=== PATIENT | male | born 1960 | race Caucasian/White ===

== ENCOUNTER 2016-11-10 12:30 | Emergency (ER) | payer SELFPAY ==
[2016-11-10 12:43] VITALS: BP 147/72
--- NOTE | 2016-11-10 12:56 | UC ---
Abdominal Pain Male HPI - HPI Summary HPI Summary: complaint of abdominal pain that started 4 days ago constant vomiting everytime he drinks or tries to eat pain in RLQ/LLQ pain intermittent throbbing pain unable to sleep d/t pain denies diarrhea, no BM for the last 5-6 days ago, no blood in stool at that time denies dysuria and fever hasn' t taken any medication for pain - History of Current Complaint Chief Complaint: UCGI Stated Complaint: VOMITING, HEADACHE Time Seen by Provider: 11/10/16 12:47 Hx Obtained From: Patient - Allergies/Home Medications Allergies/Adverse Reactions: Allergies Allergy/AdvReac Type Severity Reaction Status Date / Time No Known Allergies Allergy Verified 11/10/16 12:38 Home Medications: Home Medications Ibuprofen TAB* [Advil TAB*] 800 mg PO Q8H PRN 11/10/16 [History Confirmed ] PMH/Surg Hx/FS Hx/Imm Hx Previously Healthy: No - Surgical History Surgical History: None - Family History Known Family History: Positive: Diabetes Negative: Cardiac Disease, Hypertension - Social History Occupation: Employed Part-time Lives: With Family Alcohol Use: None Substance Use Type: None Smoking Status (MU): Heavy Every Day Tobacco Smoker Amount Used/How Often: 1/2 PPD Length of Time of Smoking/Using Tobacco: Since Age 15 Have You Smoked in the Last Year: Yes Household Exposure Type: Cigarettes Cessation Counseling: Patient Advised to Stop Review of Systems Constitutional: Negative Skin: Negative Eyes: Negative ENT: Negative Respiratory: Negative Cardiovascular: Negative Gastrointestinal: Abdominal Pain, Vomiting Genitourinary: Negative Motor: Negative Neurovascular: Negative Musculoskeletal: Negative Neurological: Negative Psychological: Negative All Other Systems Reviewed And Are Negative: Yes Physical Exam Triage Information Reviewed: Yes Appearance: Ill-Appearing, Pain Distress Vital Signs: Initial Vital Signs Temp 99.3 F 11/10/16 12:34 Pulse 98 11/10/16 12:34 Resp 20 11/10/16 12:34 BP 147/72 11/10/16 12:34 Pulse Ox 96 11/10/16 12:34 Vital Signs Reviewed: Yes Eyes: Positive: Conjunctiva Clear ENT: Positive: Pharynx normal, TMs normal Neck: Positive: No Lymphadenopathy Respiratory: Positive: Lungs clear, Normal breath sounds, No respiratory distress, No accessory muscle use Cardiovascular: Positive: RRR, No Murmur, Pulses Normal Abdomen Description: Positive: No Organomegaly, Guarding, Other: - tenderness throughout ecwept for RLQ. Negative: CVA Tenderness (R), CVA Tenderness (L) Bowel Sounds: Positive: Present Musculoskeletal: Positive: No Edema Neurological: Positive: Alert Psychological Exam: Normal Skin Exam: Normal Abd Pain Male Course/Dx - Course Course Of Treatment: exam completed. d/t acute severe abdominal pain will transfer to higher level of care for further evlaution and treatment - Differential Dx/Clinical Impression Differential Diagnosis/HQI/PQRI: Bowel Obstruction, Constipation, Diverticulitis , Gall Bladder Disease, Pancreatitis, Prostatitis, Ureteral Stone Provider Diagnoses: abdominal pain Discharge - Discharge Plan Condition: Stable Disposition: TRANS HIGHER L OF CARE FAC Referrals: Isaak Bonilla MD [Primary Care Provider] -
== END 2016-11-10 13:00 | disposition short-term general hospital (02) ==
LOC: UCCORT 12:30
DX: R10.31 Right lower quadrant pain (principal); R10.32 Left lower quadrant pain; F17.210 Nicotine dependence, cigarettes, uncomplicated
CPT/HCPCS: 81003; 99212; G0463

== ENCOUNTER 2017-03-10 12:10 | Emergency (ER) | payer OTHER ==
[2017-03-10 12:41] VITALS: BP 133/87
--- NOTE | 2017-03-10 12:45 | UC ---
HPI Febrile Illness - HPI Summary HPI Summary: 56 YEAR OLD MALE PRESENTS WITH COMPLAINS OF SEVERE LETHARGY, FATIGUE, AND JOINT PAIN. - History of Current Complaint Chief Complaint: UCGeneralIllness Time Seen by Provider: 03/10/17 12:45 Hx Obtained From: Patient Onset/Duration: Started Days Ago Timing: Lasting Days Initial Severity: Moderate Current Severity: Moderate Pain Scale Used: 0-10 Numeric - 8 - Allergy/Home Medications Allergies/Adverse Reactions: Allergies Allergy/AdvReac Type Severity Reaction Status Date / Time No Known Allergies Allergy Verified 03/10/17 12:34 PMH/Surg Hx/FS Hx/Imm Hx Previously Healthy: Yes - Surgical History Surgical History: None - Family History Known Family History: Positive: Diabetes Negative: Cardiac Disease, Hypertension - Social History Alcohol Use: None Substance Use Type: Marijuana Substance Use Comment - Amount & Last Used: daily- last used yesterday Smoking Status (MU): Heavy Every Day Tobacco Smoker Amount Used/How Often: 1 1/2 PPD Length of Time of Smoking/Using Tobacco: Since Age 15 Have You Smoked in the Last Year: Yes Household Exposure Type: Cigarettes Review of Systems Constitutional: Fatigue Skin: Negative Eyes: Negative ENT: Negative Respiratory: Negative Cardiovascular: Negative Gastrointestinal: Negative Genitourinary: Negative Motor: Negative Neurovascular: Negative Musculoskeletal: Arthralgia, Myalgia Neurological: Negative Psychological: Negative All Other Systems Reviewed And Are Negative: Yes Physical Exam Triage Information Reviewed: Yes Vital Signs: Initial Vital Signs Temp 36.9 C 03/10/17 12:34 Pulse 71 03/10/17 12:34 Resp 14 03/10/17 12:34 BP 133/87 03/10/17 12:34 Pulse Ox 97 03/10/17 12:34 Vital Signs Reviewed: Yes Eye Exam: Normal ENT Exam: Normal Dental Exam: Normal Neck exam: Normal Neck: Positive: 1 Respiratory Exam: Normal Cardiovascular Exam: Normal Abdominal Exam: Normal Musculoskeletal Exam: Normal Neurological Exam: Normal Psychological Exam: Normal Skin Exam: Normal Course/Dx - Diagnoses Clinic Provider Diagnoses: BODY ACHES. JOINT PAIN. MUSCLE PAIN. FATIGUE Discharge - Discharge Plan Condition: Stable Disposition: HOME Patient Education Materials: Weakness (ED), Fatigue (ED) Referrals: Isaak Bonilla MD [Primary Care Provider] - Additional Instructions: PATIENT SUGGESTED TO GO TO THE ER FOR SEVERE BODY ACHES AND FATIGUE
== END 2017-03-10 13:42 | disposition home or self-care (01) ==
LOC: UCCORT 12:10
DX: M79.1 Myalgia (principal); M25.50 Pain in unspecified joint; R53.83 Other fatigue; F12.90 Cannabis use, unspecified, uncomplicated; F17.210 Nicotine dependence, cigarettes, uncomplicated
CPT/HCPCS: 87502; 93005; 99212; G0463